=== PATIENT | female | born 1940 | race Caucasian/White ===

== ENCOUNTER → 2017-08-09 | Outpatient (CLI) | payer MEDICARE ==
[~2017-08-09] MED LIST: ALBU90OI INH; AMIL5 PO; AMOCLA500 PO; ASPI81CH; ASPI81EC; ASPI81EC PO; ATOR20 PO; BONIVA PO; CHOL10002 PO; CLAR500 PO; CLON.5 PO; CONEST.625; CRESTOR PO; DIVIGEL; DIVIGEL PO; Dyazide 37.5-21 EACH PO; ESCI10 PO; ESOM20; ESOM20 PO; ESTR1; GABA600 PO; GABA800 PO; HYDACE10; HYDACE5 PO; HYDCHL12.5 PO; HYDCOR20 PO; HYDROXYCHLOR PO; HYDSUL200; HYDSUL200 PO; Hydrocodone-Ap1 EA23 PO; IBUHYD PO; Inderal40 MG; K-Dur20 MEQ PO; LEVFLO250 PO; LEVFLO500 PO; LEVSOD100 PO; LEVSOD75 PO; LEVSOD88; LIPITOR; LO-DOSE ASPIRIN81 MG PO; METO10 PO; METO25ER PO; METR500; MULVITB PO; NEXIUM PO; NUCYNTA75 MG PO; OMEP20ER PO; OXYB5 PO; OXYC5 PO; Omeprazole20 M1 PO; PARI1 PO; PRED5; PRED5 PO; PROACE100 PO; PROG100 PO; PROP10 PO; PROP40; SIME80CH PO; TRIHYD; TRIHYD PO; TRIHYD253A PO; TRIHYD253B PO; VITAMIN D3 PO; Vitamin D2000 UNIT PO; XARELTO15 MG PO; [UNRECOGNIZED DRUG - CODE]; [UNRECOGNIZED DRUG - CODE] PO; [UNRECOGNIZED DRUG - REMARK]
== END ==
LOC: LAB SHORT 15:38 → OLS 15:38
PROVIDERS: Nurse Practitioner Women's Health
DX: Z12.72 Encounter for screening for malignant neoplasm of vagina (principal); N89.8 Other specified noninflammatory disorders of vagina; Z91.89 Other specified personal risk factors, not elsewhere classified
CPT/HCPCS: 87070; 87077; 87186; 87205

== ENCOUNTER → 2017-08-28 | Outpatient (CLI) | payer MEDICARE ==
[2017-08-28 19:11] LABS: Source, Urine Catheter
[2017-08-28 19:26] LABS: Bilirubin, Urine Neg (Neg); Blood, Urine 2+ (Neg); Glucose Qualitative, Urine Neg (Neg); Ketones, Urine Neg (Neg); Leukocyte Esterase, Urine 3+ (Neg); Nitrite, Urine Pos (Neg); Protein, Urine 2+ (Neg); Urobilinogen, Urine NORM (Normal)
[2017-08-28 19:38] LABS: Color, Urine Yellow (P-Yellow)
[2017-08-28 19:39] LABS: Appearance, Urine Cloudy (Clear)
[2017-08-28 19:40] LABS: White Blood Cells, Urine TNTC /hpf (0-5)
[2017-08-28 19:41] LABS: Bacteria Mod /hpf; Squamous Epithelial Cells Few /hpf (Few)
== END ==
LOC: LAB SHORT 16:43 → LAB 16:43
PROVIDERS: Obstetrics & Gynecology Gynecology
DX: N39.0 Urinary tract infection, site not specified (principal)
CPT/HCPCS: 81001; 87070; 87077; 87086; 87147; 87186; 87205

== ENCOUNTER → 2018-10-10 | Outpatient (CLI) | payer MEDICARE | END | disposition home or self-care (01) | LOC: LAB SHORT 18:29 → LAB 18:29 | DX: R30.0 Dysuria (principal) | CPT/HCPCS: 87077; 87086; 87186 ==

== ENCOUNTER → 2021-02-21 | Outpatient (CLI) | payer MEDICARE | END | disposition home or self-care (01) | LOC: LAB SHORT 17:40 | DX: R82.90 Unspecified abnormal findings in urine (principal) | CPT/HCPCS: 87077; 87086; 87186 ==

== ENCOUNTER → 2021-08-08 | Outpatient (CLI) | payer MEDICARE | END | disposition home or self-care (01) | LOC: LAB 18:31 → LAB SHORT 18:31 | DX: R10.84 Generalized abdominal pain (principal); R68.81 Early satiety; R63.4 Abnormal weight loss | CPT/HCPCS: 87338 ==

== ENCOUNTER → 2021-11-24 | Outpatient (CLI) | payer MEDICARE ==
[2021-11-24 15:59] LABS: Blood, Urine Neg (Neg); Glucose Qualitative, Urine Neg (Neg); Ketones, Urine Neg (Neg); Leukocyte Esterase, Urine 3+ (Neg); Nitrite, Urine Neg (Neg); Protein, Urine 2+ (Neg); Urobilinogen, Urine NORM (Normal)
[2021-11-24 16:47] LABS: Source, Urine Voided
[2021-11-24 16:51] LABS: Bilirubin, Urine 1+ (Neg); Color, Urine Yellow (P-Yellow)
[2021-11-24 16:52] LABS: Appearance, Urine Hazy (Clear)
[2021-11-24 17:11] LABS: Bacteria Mod /hpf; Hyaline Casts 0-2 /lpf (0-2)
[2021-11-24 17:12] LABS: Red Blood Cells, Urine 0-2 /hpf (0-2); Squamous Epithelial Cells Rare /hpf (Few); White Blood Cells, Urine 0-2 /hpf (0-5)
[2021-11-24 17:13] LABS: Amorphous Light (0-Heavy); Calcium Oxalate Crystals Rare /hpf; Yeast/Fungi Urine Rare /hpf
[2021-11-24 17:14] LABS: Transitional Epithelial Cells Rare /hpf (0-Rare)
== END | disposition home or self-care (01) ==
LOC: LAB 10:15 → LAB SHORT 10:15
PROVIDERS: Nurse Practitioner Family
DX: R30.0 Dysuria (principal); Z79.899 Other long term (current) drug therapy
CPT/HCPCS: 81001; 87086; G0480

== ENCOUNTER → 2023-03-28 | Outpatient (CLI) | payer MEDICARE ==
[2023-04-02 06:48] LABS: 7-AMINOCLONAZEPAM, URN, QUANT <5 ng/mL; A-HYDROXYALPRAZOLAM, URN, QNT <5 ng/mL; A-HYDROXYMIDAZOLAM, URN, QNT <20 ng/mL; ALPRAZOLAM, URN, QUANT <5 ng/mL; CHLORDIAZEPOXIDE, URN, QUANT <20 ng/mL; CLONAZEPAM, URN, QUANT <5 ng/mL; DIAZEPAM, URN, QUANT <20 ng/mL; LORAZEPAM, URN, QUANT <20 ng/mL; MIDAZOLAM, URN, QUANT <20 ng/mL; NORDIAZEPAM, URN, QUANT <20 ng/mL; OXAZEPAM, URN, QUANT <20 ng/mL; TEMAZEPAM, URN, QUANT <20 ng/mL
== END | disposition home or self-care (01) ==
LOC: LAB SHORT 17:43 → LAB 17:43
PROVIDERS: Nurse Practitioner Family
DX: Z51.81 Encounter for therapeutic drug level monitoring (principal); Z79.899 Other long term (current) drug therapy
CPT/HCPCS: G0481

== ENCOUNTER → 2024-10-09 | Outpatient (CLI) | payer MEDICARE | END | disposition home or self-care (01) | LOC: LAB SHORT 18:54 → LAB 18:54 | DX: N39.0 Urinary tract infection, site not specified (principal); R31.9 Hematuria, unspecified | CPT/HCPCS: 87077; 87086; 87186 ==

== ENCOUNTER 2024-11-19 13:12 | Inpatient (IN) | payer MEDICARE ==
[~2024-11-19] VITALS: Ht 154.9 cm; Wt 49.6 kg
[~2024-11-19 13:12] MED LIST changes: -AMIODARONE HCL100 M3 PO; -ATOR10 PO; -BUME1 PO; -FURO20 PO; -GABA300 PO; -HYDROCODONE-AC1 EA19 PO; -LANS15EC PO; -LEVOTHYROXINE75 MC9 PO; -LOSARTAN POTASS25 M2 PO; -METO50ER PO; -MIRT15 PO; -MYRBETRIQ50 MG PO; -Norco 10-325 T1 EACH PO; -POTCHL20ER PO; -QUET25 PO
[2024-11-19 14:04] VITALS: BP 139/101
[2024-11-19 16:26] VITALS: BP 107/85
[2024-11-19] MEDS ORDERED: AMIODARONE HCL100 M3 PO (17:24)
[2024-11-19] MEDS ORDERED: ATOR10 PO (17:24)
[2024-11-19] MEDS ORDERED: FURO20 PO (17:25)
[2024-11-19] MEDS ORDERED: GABA300 PO (17:25)
[2024-11-19] MEDS ORDERED: Norco 10-325 T1 EACH PO (17:26)
[2024-11-19] MEDS ORDERED: LEVOTHYROXINE75 MC9 PO (17:27)
[2024-11-19] MEDS ORDERED: METO50ER PO (17:28)
[2024-11-19] MEDS ORDERED: METO25ER PO (17:28)
[2024-11-19] MEDS ORDERED: MYRBETRIQ50 MG PO (17:30)
[2024-11-19] MEDS ORDERED: MIRT15 PO (17:30)
[2024-11-19] MEDS ORDERED: PARI1 PO (17:31)
[2024-11-19] MEDS ORDERED: HYDSUL200 PO (17:31)
[2024-11-19] MEDS ORDERED: XARELTO15 MG PO (17:32)
[2024-11-19] MEDS ORDERED: POTCHL20ER PO (17:32)
[2024-11-19] MEDS ORDERED: QUET25 PO (17:35)
--- NOTE | 2024-11-19 18:37 | NUR ---
SHIFT SUMMARY PT AOX3/4, COOEPRATIVE, ABLE TO MAKE NEEDS KNOWN. PT IS DIRECT ADMIT. 1 PERSON ASSIST WITH FWW. UTILIZING 1L O2 PRN FOR SOB, ROOM AIR IS BASELINE. ON HEART HEALTHY DIET. THIS RN HAS NOT GIVEN ANY MEDICATIONS. MED REC IS COMPLETE. PT REPORTS PT DOES HAVE MEMORY PROBLEMS "SHE ALWAYS ASKS IF SHE TOOK HER MEDS THIS MORNING". NO OTHER EVENTS FOR SHIFT. BED IN LOWEST POSITION, CALL LIGHT WITHIN REACH.
[2024-11-19] MEDS ORDERED: FLU VACC TS2025(65UP)/MF59C/PF 45 MCG/0.5 ML SYRINGE IM SCH (18:50)
[2024-11-19] MEDS ORDERED: Magnesium Hydroxide Conc 10 ML UDC PO PRN (18:50)
[2024-11-19] MEDS ORDERED: HYDROcodone 5-APAP 325 TAB PO PRN (19:00)
[2024-11-19 19:08] VITALS: BP 101/63
[2024-11-19] MEDS ORDERED: CefTRIAXone Sodium 1,000 MG in NS 100 ML IV SCH (22:21)
[2024-11-19] MEDS ORDERED: NS 250 ML IV PRN (22:40)
[2024-11-19 23:26] VITALS: BP 130/96
[2024-11-20 03:33] VITALS: BP 100/70
--- NOTE | 2024-11-20 04:06 | NUR ---
SHIFT SUMMARY PATIENT HAD NO ACUTE CHANGES. ALERT ORIENTED AND ONE ASSIST TO BR WITH F/WW. ON 1-2 L O2 NC. PIV INTACT. IV ABX INFUSED. TELE PACED AFIB 77 WITH IRREGULAR HR. DENIES CHEST PAIN, SOB, AND N/V. VSS/AFEBRILE. ANXIOUS TRYING TO SETTLED INTO BED. ABLE TO SLEEP AFTER NORCO GIVEN FOR RS RIB PAIN AND SCHEDULE SEROQUEL 25 MG FOR INSOMNIA. CALL LIGHT IN REACH. BED IN LOWEST POSITION. WILL CONTINUE TO MONITOR UNTIL DAY SHIFT NURSE ASSUMES CARE.
[2024-11-20 07:55] VITALS: BP 117/65
[2024-11-20] MEDS ORDERED: Misc. Capsule PO SCH (09:00)
[2024-11-20] MEDS ORDERED: Enoxaparin 30 MG/0.3 ML SYR SC SCH (09:00)
--- NOTE | 2024-11-20 09:45 | NUR ---
GAUGE AND WEIGH MACHINE OPERATOR FOUND 3 PILLS IN PT BED - 1 PLAQUENIL TAB, 1 METOPROLOL XR TAB, AND 1 LIPITOR TABLET. MORNING MED PASS COMPLETED BY BREAK RN AND BREAK RN REPORTS WITNESSING PT TAKE ALL MEDICATIONS ONE AT A TIME WITH WATER. RN WILL NOTIFY PROVIDER DURING MORNING ROUNDS. PT APPEARS COMFORTABLE AND IN NO DISTRESS. SITTING UP IN CHAIR WITH CHAIR ALARM AND CALL LIGHT WITHIN REACH. SPOUSE AT BEDSIDE.
[2024-11-20 10:50] LABS: BASOPHILS ABSOLUTE AUTO 0.06 K/mm3 (0.00-0.23); BASOPHILS PERCENT AUTO 1 % (0-2); EOSINOPHILS ABSOLUTE AUTO 0.00 K/mm3 (0.00-0.68); EOSINOPHILS PERCENT AUTO 0 % (0-6); Hematocrit 43.7 % (33.0-51.0); Hemoglobin 13.7 g/dL (11.5-16.0); IMMATURE GRAN ABSOLUTE AUTO 0.01 K/mm3 (0.00-0.10); IMMATURE GRAN PERCENT AUTO 0 % (0-1); LYMPHOCYTES ABSOLUTE AUTO 0.93 K/mm3 (0.84-5.20); LYMPHOCYTES PERCENT AUTO 17 % (21-46); MONOCYTES ABSOLUTE AUTO 0.51 K/mm3 (0.16-1.47); MONOCYTES PERCENT AUTO 9 % (4-13); Mean Corpuscular HGB Conc 31.4 g/dL (31.5-36.5); Mean Corpuscular Volume 96 fL (80-100); NEUTROPHILS ABSOLUTE AUTO 4.14 K/mm3 (1.96-9.15); NEUTROPHILS PERCENT AUTO 73 % (41-73); NRBC ABSOLUTE 0.00 K/mm3 (0.00-0.02); NRBC Auto 0.0 /100 WBC (0.0-0.2); Platelet Count 137 K/mm3 (150-400); RDW Coefficient Variation 14.4 % (11.7-14.2); RDW Standard Deviation 50.7 fL (35.1-46.3)
[2024-11-20 11:15] LABS: Alanine Aminotransfer (ALT/SGP 61.0 U/L (12-78); Albumin, Blood 3.6 g/dL (3.4-5.0); Albumin/Globulin Ratio 1.4 (0.8-1.8); Anion Gap 7.0 mmol/L (3-11); Aspartate Aminotrans (AST/SGOT 70.0 U/L (12-37); Bilirubin, Total 2.5 mg/dL (0.1-1.0); Blood Urea Nitrogen 30.0 mg/dL (8-24); CO2, Blood 32.0 mmol/L (21-32); Calcium, Blood 9.3 mg/dL (8.5-10.1); Chloride, Blood 105.0 mmol/L (98-108); Creatinine, Blood 1.32 mg/dL (0.40-1.00); Globulin, Blood 2.6 g/dL (2.2-4.0); Glucose, Blood 95.0 mg/dL (70-99); Magnesium, Blood 1.9 mg/dL (1.6-2.4); Potassium, Blood 3.5 mmol/L (3.5-5.5); Sodium, Blood 140.0 mmol/L (136-145); Total Protein, Blood 6.2 g/dL (6.4-8.2)
[2024-11-20 12:05] VITALS: BP 101/69
[2024-11-20] MEDS ORDERED: LOSARTAN POTASS25 M2 PO (13:00)
[2024-11-20] MEDS ORDERED: HYDROCODONE-AC1 EA19 PO (14:22)
--- NOTE | 2024-11-20 14:40 | NUR ---
"Spiritual Care | Pt. Request Pt. is awake in a chair when she welcomes my visit. Pt. is pleasant. Spouse is also at bedside but is somnolent for the entire visit. Facilitated a life review and listened with empathy and interest. Pt. is unsettled because she is not sure of her diagnosis or plan of care. Listen with empathy and sought to normalize the Pt. experience. Considered matters of melony and her family background. Pt. displayed evidence of trust. Prayed for the Pt. Pt. verbalized gratitude for the spiritual care visit."
[2024-11-20 15:47] VITALS: BP 134/96
--- NOTE | 2024-11-20 17:47 | NUR ---
SHIFT SUMMARY NO ACUTE CHANGES, A/Ox4, ABLE TO MAKE NEEDS KNOWN AND USES CALL SYSTEM APPROPRIATELY. ABD ULTRASOUND AND ECHO COMPLETED THIS SHIFT. VITALS STABLE. PT DENIES PAIN. TRACE EDEMA TO BLE, CONTINUES TO HAVE SOB AT TIMES ESPECIALLY WHEN LAYING FLAT. PER DR. MARCOS PT TO WEAR SUPPLEMENTAL O2 ONLY IF SATING BELOW 95%. ORDERS NOW IN FOR STRICT I/O. CONTINUE FLUID RESTRICTION - RN UPDATED DIET ORDER TO INCLUDE FLUID RESTRICTION. WILL REPORT TO ONCOMING RN REGARDING NEW ORDERS AND NEED FOR DAILY WEIGHT CHECK ON NOCSHIFT. PT CURRENTLY RESTING IN BED HAVING ABD ULTRASOUND COMPLETED. APPEARS TO BE IN NO DISTRESS. EKG COMPLETED THIS SHIFT FOR ST CHANGES - HEMANT REVIEWED EKG AND REPORTS NO SIGNIFICANT CHANGES FROM PREVIOUS EKG.
[2024-11-20] MEDS ORDERED: Bumetanide 0.25 MG/ML 10ML Vial IV SCH (18:00)
[2024-11-20 20:05] VITALS: BP 116/61
[2024-11-21] VITALS (7 sets, daily range): BP systolic 104–141; BP diastolic 67–94
--- NOTE | 2024-11-21 04:08 | NUR ---
SHIFT SUMMARY PATIENT HAD NO ACUTE CHANGES. ALERT ORIENTED AND SBA TO BR. DENIES CHEST PAIN, SOB, AND N/V. VSS/AFEBRILE. PIV INTACT. IV ABX INFUSED. TELE MONITOR PACED AFIB 84. FLUID RESTRICTION 1,500 mL. CALL LIGHT IN REACH. BED IN LOWEST POSITION. WILL CONTINUE TO MONITOR UNTIL DAY SHIFT NURSE ASSUMES CARE.
[2024-11-21 05:59] LABS: BASOPHILS ABSOLUTE AUTO 0.04 K/mm3 (0.00-0.23); BASOPHILS PERCENT AUTO 1 % (0-2); EOSINOPHILS ABSOLUTE AUTO 0.00 K/mm3 (0.00-0.68); EOSINOPHILS PERCENT AUTO 0 % (0-6); Hematocrit 39.4 % (33.0-51.0); Hemoglobin 12.5 g/dL (11.5-16.0); IMMATURE GRAN ABSOLUTE AUTO 0.01 K/mm3 (0.00-0.10); IMMATURE GRAN PERCENT AUTO 0 % (0-1); LYMPHOCYTES ABSOLUTE AUTO 0.82 K/mm3 (0.84-5.20); LYMPHOCYTES PERCENT AUTO 17 % (21-46); MONOCYTES ABSOLUTE AUTO 0.53 K/mm3 (0.16-1.47); MONOCYTES PERCENT AUTO 11 % (4-13); Mean Corpuscular HGB Conc 31.7 g/dL (31.5-36.5); Mean Corpuscular Volume 95 fL (80-100); NEUTROPHILS ABSOLUTE AUTO 3.34 K/mm3 (1.96-9.15); NEUTROPHILS PERCENT AUTO 71 % (41-73); NRBC ABSOLUTE 0.00 K/mm3 (0.00-0.02); NRBC Auto 0.0 /100 WBC (0.0-0.2); Platelet Count 124 K/mm3 (150-400); RDW Coefficient Variation 14.5 % (11.7-14.2); RDW Standard Deviation 50.2 fL (35.1-46.3)
[2024-11-21 06:15] LABS: Alanine Aminotransfer (ALT/SGP 50.0 U/L (12-78); Albumin, Blood 3.0 g/dL (3.4-5.0); Albumin/Globulin Ratio 1.2 (0.8-1.8); Anion Gap 6.0 mmol/L (3-11); Aspartate Aminotrans (AST/SGOT 57.0 U/L (12-37); Bilirubin, Total 1.6 mg/dL (0.1-1.0); Blood Urea Nitrogen 32.0 mg/dL (8-24); CO2, Blood 34.0 mmol/L (21-32); Calcium, Blood 9.1 mg/dL (8.5-10.1); Chloride, Blood 105.0 mmol/L (98-108); Creatinine, Blood 1.39 mg/dL (0.40-1.00); Globulin, Blood 2.4 g/dL (2.2-4.0); Glucose, Blood 92.0 mg/dL (70-99); Magnesium, Blood 2.0 mg/dL (1.6-2.4); Potassium, Blood 3.8 mmol/L (3.5-5.5); Sodium, Blood 141.0 mmol/L (136-145); Total Protein, Blood 5.4 g/dL (6.4-8.2)
--- NOTE | 2024-11-21 09:00 | NUR ---
PT SLEEPY, A/O X3, DID FINALLY AWAKEN TO EAT. H/R IRREG, PACER, PER TELE AFIB, ]70'S. +1 BLE. DENIES CHEST PAIN, PRESSURE. LUNGS CLEAR, WITH LIGHT DIM IN BASES.ON R.A WHILE AWAKE. BT X4 LAST BM YEST PER PT. VIODS BATHROOM. 1 ASST FWW. BED IN LOW POSITION, CALL LITE IN REACH, CALLS APPROP
--- NOTE | 2024-11-21 17:49 | NUR ---
PT PLEASANT TODAY. NO NEW COMPLAINTS. IN ROOM THIS AFTERNOON. PT AMBULATIING TO BATHROOM SBA. DID GET UPSET STOMACH, STATES FROM [facility]. MEDICATED PER EMAR. NO OTHER CONCERNS NOTED. BED IN LOW POSITION, CALL LITE IN REACH, CALLS APROP
[2024-11-22 00:10] VITALS: BP 111/77
[2024-11-22 03:10] VITALS: BP 108/77
[2024-11-22 05:43] LABS: BASOPHILS ABSOLUTE AUTO 0.04 K/mm3 (0.00-0.23); BASOPHILS PERCENT AUTO 1 % (0-2); EOSINOPHILS ABSOLUTE AUTO 0.00 K/mm3 (0.00-0.68); EOSINOPHILS PERCENT AUTO 0 % (0-6); Hematocrit 41.0 % (33.0-51.0); Hemoglobin 13.2 g/dL (11.5-16.0); IMMATURE GRAN ABSOLUTE AUTO 0.01 K/mm3 (0.00-0.10); IMMATURE GRAN PERCENT AUTO 0 % (0-1); LYMPHOCYTES ABSOLUTE AUTO 0.98 K/mm3 (0.84-5.20); LYMPHOCYTES PERCENT AUTO 17 % (21-46); MONOCYTES ABSOLUTE AUTO 0.63 K/mm3 (0.16-1.47); MONOCYTES PERCENT AUTO 11 % (4-13); Mean Corpuscular HGB Conc 32.2 g/dL (31.5-36.5); Mean Corpuscular Volume 95 fL (80-100); NEUTROPHILS ABSOLUTE AUTO 4.12 K/mm3 (1.96-9.15); NEUTROPHILS PERCENT AUTO 71 % (41-73); NRBC ABSOLUTE 0.00 K/mm3 (0.00-0.02); NRBC Auto 0.0 /100 WBC (0.0-0.2); Platelet Count 143 K/mm3 (150-400); RDW Coefficient Variation 14.4 % (11.7-14.2); RDW Standard Deviation 49.6 fL (35.1-46.3)
[2024-11-22 06:08] LABS: Alanine Aminotransfer (ALT/SGP 50.0 U/L (12-78); Albumin, Blood 3.2 g/dL (3.4-5.0); Albumin/Globulin Ratio 1.2 (0.8-1.8); Anion Gap 6.0 mmol/L (3-11); Aspartate Aminotrans (AST/SGOT 52.0 U/L (12-37); Bilirubin, Total 1.3 mg/dL (0.1-1.0); Blood Urea Nitrogen 31.0 mg/dL (8-24); CO2, Blood 36.0 mmol/L (21-32); Calcium, Blood 9.3 mg/dL (8.5-10.1); Chloride, Blood 103.0 mmol/L (98-108); Creatinine, Blood 1.43 mg/dL (0.40-1.00); Globulin, Blood 2.6 g/dL (2.2-4.0); Glucose, Blood 101.0 mg/dL (70-99); Magnesium, Blood 2.1 mg/dL (1.6-2.4); Potassium, Blood 3.5 mmol/L (3.5-5.5); Sodium, Blood 141.0 mmol/L (136-145); Total Protein, Blood 5.8 g/dL (6.4-8.2)
--- NOTE | 2024-11-22 06:31 | NUR ---
MAIL FORWARDING SYSTEM MARKUP CLERK SUMMARY PT A&OX4, VSS. PT IS PLEASANT AND COOPERATIVE W/ CARE. USES CALL LIGHT AND VOICES NEEDS APPROPRIATELY. HAS BEEN ASLEEP FOR MOST OF THE NIGHT. CHEST RISE/RESPIRATIONS NOTED. UP INTERMITTENTLY TO USE RESTROOM W/ SBA W/ FWW. REMAINS ON TELE. A FIB AT 76. USES 2L NC ON AND OFF WHILE SLEEPING. O2 SATS >92% ON NC WHILE SLEEPING. BED RAILS UP X 2, BED IN LOWEST POSITION, BED WHEELS LOCKED, BED ALARM ON, PERSONAL BELONGINGS AND CALL LIGHT WITHIN REACH FOR SAFETY.
[2024-11-22 07:47] VITALS: BP 99/64
[2024-11-22 09:07] VITALS: BP 111/70
[2024-11-22 11:09] VITALS: BP 128/90
[2024-11-22] MEDS ORDERED: LANS15EC PO (13:21)
[2024-11-22] MEDS ORDERED: BUME1 PO (13:21)
--- NOTE | 2024-11-22 15:02 | NUR ---
DISCHARGE PT DISCHARGED HOME WITH , CLINICAL PROFESSOR WHEELED PT OUT TO VEHICLE. EDUCATION PROVIDED, ALL QUESTIONS ANSWERED. ALL BELONGINGS SENT WITH PT.
== END 2024-11-22 15:04 | disposition home or self-care (01) | DRG 291 ==
LOC: MEDS 13:12
PROVIDERS: ADMIT Family Medicine
DX: I13.0 Hypertensive heart and chronic kidney disease with heart failure and stage 1 through stage 4 chronic kidney disease, or unspecified chronic kidney disease (principal); I50.23 Acute on chronic systolic (congestive) heart failure; N17.9 Acute kidney failure, unspecified; F03.94 Unspecified dementia, unspecified severity, with anxiety; I48.20 Chronic atrial fibrillation, unspecified; R64 Cachexia; I25.10 Atherosclerotic heart disease of native coronary artery without angina pectoris; N18.31 Chronic kidney disease, stage 3a; E03.9 Hypothyroidism, unspecified; L40.9 Psoriasis, unspecified; M19.90 Unspecified osteoarthritis, unspecified site; R62.7 Adult failure to thrive; N32.81 Overactive bladder; R53.1 Weakness; K21.9 Gastro-esophageal reflux disease without esophagitis; G62.9 Polyneuropathy, unspecified; M51.369 Other intervertebral disc degeneration, lumbar region without mention of lumbar back pain or lower extremity pain; F29 Unspecified psychosis not due to a substance or known physiological condition; Z90.89 Acquired absence of other organs; Z90.49 Acquired absence of other specified parts of digestive tract; Z90.710 Acquired absence of both cervix and uterus; Z95.0 Presence of cardiac pacemaker; Z88.8 Allergy status to other drugs, medicaments and biological substances; Z88.5 Allergy status to narcotic agent; Z79.891 Long term (current) use of opiate analgesic; Z79.899 Other long term (current) drug therapy; Z79.890 Hormone replacement therapy; Z79.01 Long term (current) use of anticoagulants; R06.00 Dyspnea, unspecified; J44.9 Chronic obstructive pulmonary disease, unspecified; R91.8 Other nonspecific abnormal finding of lung field; K22.89 Other specified disease of esophagus
CPT/HCPCS: 36415; 71046; 76700; 80053; 83735; 83880; 85025; 93005; 93010; 93306; 96365; 96372; 96375; 97161; 97165; A9270; G0378; G0379; J0696; J1650; J7050

== ENCOUNTER → 2024-11-19 | Outpatient (CLI) | payer MEDICARE ==
[~2024-11-19] MED LIST changes: +AMIODARONE HCL100 M3 PO; +ATOR10 PO; +BUME1 PO; +FURO20 PO; +GABA300 PO; +HYDROCODONE-AC1 EA19 PO; +LANS15EC PO; +LEVOTHYROXINE75 MC9 PO; +LOSARTAN POTASS25 M2 PO; +METO50ER PO; +MIRT15 PO; +MYRBETRIQ50 MG PO; +Norco 10-325 T1 EACH PO; +POTCHL20ER PO; +QUET25 PO
[2024-11-19 11:50] LABS: BASOPHILS ABSOLUTE AUTO 0.03 K/mm3 (0.00-0.23); BASOPHILS PERCENT AUTO 1 % (0-2); EOSINOPHILS ABSOLUTE AUTO 0.00 K/mm3 (0.00-0.68); EOSINOPHILS PERCENT AUTO 0 % (0-6); Hematocrit 42.5 % (33.0-51.0); Hemoglobin 13.4 g/dL (11.5-16.0); IMMATURE GRAN ABSOLUTE AUTO 0.02 K/mm3 (0.00-0.10); IMMATURE GRAN PERCENT AUTO 0 % (0-1); LYMPHOCYTES ABSOLUTE AUTO 0.99 K/mm3 (0.84-5.20); LYMPHOCYTES PERCENT AUTO 15 % (21-46); MONOCYTES ABSOLUTE AUTO 0.74 K/mm3 (0.16-1.47); MONOCYTES PERCENT AUTO 11 % (4-13); Mean Corpuscular HGB Conc 31.5 g/dL (31.5-36.5); Mean Corpuscular Volume 96 fL (80-100); NEUTROPHILS ABSOLUTE AUTO 4.74 K/mm3 (1.96-9.15); NEUTROPHILS PERCENT AUTO 73 % (41-73); NRBC ABSOLUTE 0.00 K/mm3 (0.00-0.02); NRBC Auto 0.0 /100 WBC (0.0-0.2); Platelet Count 154 K/mm3 (150-400); RDW Coefficient Variation 14.4 % (11.7-14.2); RDW Standard Deviation 50.6 fL (35.1-46.3)
[2024-11-19 12:04] LABS: Alanine Aminotransfer (ALT/SGP 63.0 U/L (12-78); Albumin, Blood 3.6 g/dL (3.4-5.0); Albumin/Globulin Ratio 1.3 (0.8-1.8); Anion Gap 12.0 mmol/L (3-11); Aspartate Aminotrans (AST/SGOT 72.0 U/L (12-37); Bilirubin, Total 2.3 mg/dL (0.1-1.0); Blood Urea Nitrogen 32.0 mg/dL (8-24); CO2, Blood 33.0 mmol/L (21-32); Calcium, Blood 9.6 mg/dL (8.5-10.1); Chloride, Blood 106.0 mmol/L (98-108); Creatinine, Blood 1.48 mg/dL (0.40-1.00); Globulin, Blood 2.8 g/dL (2.2-4.0); Glucose, Blood 82.0 mg/dL (70-99); Potassium, Blood 4.2 mmol/L (3.5-5.5); Sodium, Blood 147.0 mmol/L (136-145); Total Protein, Blood 6.4 g/dL (6.4-8.2)
== END | disposition home or self-care (01) ==
LOC: LAB SHORT 11:45 → LAB 11:45
PROVIDERS: Physician Assistant Medical
DX: R53.1 Weakness (principal)
CPT/HCPCS: 80053; 83880; 85025